=== PATIENT | female | born 1965 | race Caucasian/White ===

== ENCOUNTER → 2016-12-10 | Outpatient (CLI) | payer BC ==
--- NOTE | 2016-12-10 11:50 | MRI ---
MRI right shoulder without contrast Indication: Shoulder pain and stiffness Technique: Multi sequence, multi planar MR images of the right shoulder were obtained without contra st Comparison: None Findings: Bone marrow signal appears normal. No acute fracture, malalignment or suspicious osseous lesion is i dentified. There is mild tendinosis and bursal sided fraying of the supraspinatus tendon without discrete tear identified. The infraspinatus, subscapularis and teres minor appear intact. There is no atrophy or e oz of the rotator cuff musculature. There is mild degenerative arthrosis of the AC joint. The type 2 acromion shows no significant anter ior or lateral downsloping. The glenohumeral joint appears well maintained. There is small fluid wit hin the subdeltoid/subacromial bursa. No significant glenohumeral joint effusion is seen. The intraarticular long head biceps tendon is thickened with intermediate signal. There is also sugg estion of a longitudinal split tear of the extra-articular long head biceps tendon (image [id number], ser ies [id number]) with small fluid in the tendon sheath. No definite focal labral defects are identified. Impression: 1. Long head biceps tenosynovitis with suspected longitudinal split tear or the extra-articular tend on, as detailed above. 2. Mild supraspinatus tendinosis without discrete cuff tear. 3. Mild AC joint DJD and small fluid in the subdeltoid/subacromial bursa, which can be seen with bur sitis. Reported By:
== END ==
LOC: RAD 08:45
PROVIDERS: ATTEND Internal Medicine
DX: M25.511 Pain in right shoulder (principal)
CPT/HCPCS: 73221